=== PATIENT | male | born 1980 | race Caucasian/White ===

== ENCOUNTER 2020-08-22 19:44 | Emergency (ER) | payer OTHER, SELFPAY ==
[2020-08-22 19:50] VITALS: BP 152/114; PULSE 102; RESP 20; TEMP 36.1; O2SAT 99
[2020-08-22 20:16] VITALS: BP 142/93; PULSE 74; RESP 20; O2SAT 97
--- NOTE | 2020-08-22 20:32 | ED.EXTPRO ---
HPI - Extremity Problem General Chief complaint: Extremity Problem,Nontraumatic Stated complaint: swelling in feet, tingly in feet, numbness inthigh Source: patient and family Mode of arrival: ambulatory Limitations: no limitations History of Present Illness HPI Narrative: this is a 40-year-old gentleman that presents with some right lower leg numbness mainly in the gluteal area and the lateral right thigh area currently no back pain has been having this problem off and on and currently has been having more lower leg numbness and pain no known injuries there is currently no swelling although the patient feels that his lower extremities have some mild edema there is no shortness of breath no fever chills no back ache. Complaint: extremity pain Onset (ago): day(s) Pain Consistency: constant Location: lower extremity Severity scale (1-10): 4 Quality: other ( numbness) Relieving factors: nothing Related Data Allergies Allergy/AdvReac Type Severity Reaction Status Date / Time No Known Allergies Allergy Verified 08/22/20 20:03 Review of Systems Review of Systems: All systems reviewed & are unremarkable except as noted in HPI and below PMFSH Past Medical History Medical History Patient denies medical problems Exam Const: General: no acute distress and alert Orientation/consciousness: patient oriented x3 HENMT: Head: normal to inspection Eyes: Conjunctivae: conjunctivae normal Pupils: Equal, round and reactive pupils present EOM: EOMs intact bilaterally Neck: Neck: normal visual inspection, no lymphadenopathy and no meningeal signs Chest: Chest palpation & inspection: normal inspection of the chest Resp: Effort & Inspection: normal respiratory effort Auscultation: clear to auscultation bilaterally Cardio: Rate: regular rate Rhythm: regular rhythm Back/Spine/Pelvis: Back: no CVA tenderness Skin: General skin exam: normal color Rashes: no rashes Neuro: General: patient oriented x3 and moves all extremities Other: sciatic pain radiating into his right lower leg Extrem: General: normal to inspection Psych: Mental Status: mental status grossly normal Affect: normal affect Course Course Emergency Course: patient received Depo-Medrol and 1 g of Tylenol and symptoms have improved Vital Signs Vital signs: Vital Signs Temperature 36.1 C L 08/22/20 19:50 Pulse Rate 102 H 08/22/20 19:50 Respiratory Rate 20 08/22/20 19:50 Blood Pressure 152/114 H 08/22/20 19:50 Pulse Oximetry 99 08/22/20 19:50 Temperature 36.1 C L 08/22/20 19:50 Pulse Rate 74 08/22/20 20:16 Respiratory Rate 20 08/22/20 20:16 Blood Pressure 142/93 H 08/22/20 20:16 Pulse Oximetry 97 08/22/20 20:16 Critical Care Time Critical Care Time Critical Care Time: No Discharge Plan Discharge Clinical Impression: Sciatica Qualifiers: Laterality: right Qualified Code(s): M54.31 - Sciatica, right side Patient Disposition: Home, Self-Care Condition: Stable Instructions: Antibiotic Form, Sciatica (ED) Additional Instructions: advised to take medicine as prescribed, only Tylenol extra-strength as needed and follow-up primary care physician within the next 2 to 3 days for further evaluation and treatment. Prescriptions: New methylprednisolone [Medrol ([place])] 4 mg tablets,dose pack See Rx Instructions .ROUTE .COMPLEX Qty: 21 RF: 0 Follow-up/Referrals: UNKNOWN,DOCTOR [Primary Care Provider] - Time of Disposition: :43
[2020-08-22] MEDS: methylPREDNISolone ACETATE 40 MG/ML VIAL 80 MG IM (20:45)
[2020-08-22 20:51] VITALS: BP 134/87; PULSE 97; RESP 20; TEMP 36.6; O2SAT 99
[2020-08-22] MEDS: ACETAMINOPHEN 500 MG TABLET 1000 MG PO (20:51)
== END 2020-08-22 20:55 | disposition home or self-care (01) ==
PROVIDERS: Emergency Provider Emergency Medicine
DX: M54.31 Sciatica, right side (principal)
CPT/HCPCS: 96372; 99283; J1030